=== PATIENT | female | born 1975 | race Caucasian/White ===

== ENCOUNTER 2019-07-13 05:32 | Emergency (ER) | payer OTHER ==
[~2019-07-13] VITALS: Ht 170.2 cm; Wt 77.1 kg
[2019-07-13 07:26] VITALS: BP 120/83
[2019-07-13] MEDS ORDERED: FAMOTIDINE 20 MG TAB PO ONE (07:45)
[2019-07-13] MEDS ORDERED: diphenhdrAMINE HCL 50 MG/1 ML VL IM ONE (07:45)
[2019-07-13] MEDS ORDERED: methylPREDNISolone SOD SUCC 125 MG/2 ML VL IM ONE (07:45)
== END 2019-07-13 08:20 | disposition home or self-care (01) ==
LOC: ER 05:32
DX: L23.9 Allergic contact dermatitis, unspecified cause (principal)
CPT/HCPCS: 96372; 99284; J1200; J2930

== ENCOUNTER 2022-09-16 18:13 | Emergency (ER) | payer OTHER ==
[~2022-09-16] VITALS: Ht 170.2 cm; Wt 80.0 kg
[2022-09-16 18:47] LABS: Basophils # (auto) 0 10 ^3/uL (0-0.2); Basophils % (auto) 0.4 % (0.0-2.0); Eosinophils # (auto) 0.1 10 ^3/uL (0-0.8); Hematocrit 37.3 % (36.0-46.0); Hemoglobin 12.4 g/dL (12.2-16.2); Lymphocytes # (auto) 3.2 10 ^3/uL (0.4-5.4); Lymphocytes % (auto) 41.4 % (10.0-50.0); Mean Corpuscular Hgb Conc. 33.2 g/dL (32.0-36.0); Mean Corpuscular Volume 90.4 fL (80.0-100.0); Monocytes # (auto) 0.5 10 ^3/uL (0-1.3); Monocytes % (auto) 6.6 % (0.0-12.0); Neutrophils % (auto) 50.6 % (37.0-80.0); Nucleated Red Blood Cells % 0.1 %; Red Blood Cells 4.13 10^6/uL (4.0-5.20); Red Cell Distribution Width 13.2 % (11.8-14.3); White Blood Cell 7.8 10^3/uL (4.4-10.8)
[2022-09-16 19:17] LABS: Albumin 3.6 g/dL (3.4-5.0); Calcium 8.8 mg/dL (8.5-10.1); Potassium 3.7 mmol/L (3.5-5.1)
[2022-09-16 19:21] LABS: BUN/Creatinine Ratio 19.2 (10.0-20.0); Bilirubin, Total 0.2 mg/dL (0.2-1.0); Total Protein 6.6 g/dL (6.4-8.2)
[2022-09-16] MEDS ORDERED: LORazepam 2MG/ML-1ML VIAL IV ONE (22:00)
[2022-09-16] MEDS ORDERED: SODIUM CHLORIDE 0.9% 1,000 ML IVB ONE (22:00)
[2022-09-16] MEDS ORDERED: ACETAMINOPHEN 325 MG TAB PO ONE (22:00)
[2022-09-16 22:18] LABS: Blood Alcohol < 3.0 mg/dL (<10); Magnesium 2.2 mg/dL (1.6-2.6)
[2022-09-16 22:28] LABS: Partial Thromboplastin Time 26.5 SEC (24.5-34.5)
[2022-09-16] MEDS ORDERED: IOHEXOL 350 MG/ML 100ML IJ ONE (22:37)
[2022-09-17 03:02] VITALS: BP 115/72; PULSE 69; RESP 18; TEMP 97.6; O2SAT 100
== END 2022-09-17 02:12 | disposition left against medical advice (07) ==
LOC: ER 18:13
DX: G45.9 Transient cerebral ischemic attack, unspecified (principal); I63.9 Cerebral infarction, unspecified; I24.9 Acute ischemic heart disease, unspecified; R07.89 Other chest pain; R20.0 Anesthesia of skin; M62.81 Muscle weakness (generalized); F17.210 Nicotine dependence, cigarettes, uncomplicated; Z88.0 Allergy status to penicillin
CPT/HCPCS: 36415; 70450; 70496; 71045; 80053; 80320; 83605; 83735; 83880; 84484; 85025; 85610; 85730; 93005; 96361; 96374; 99285; J2060; J7030; Q9967

== ENCOUNTER 2023-05-13 06:44 | Emergency (ER) | payer MEDICAID ==
[~2023-05-13] VITALS: Ht 170.2 cm; Wt 71.3 kg
[2023-05-13 07:26] VITALS: BP 118/75; PULSE 92; RESP 18; TEMP 97.3; O2SAT 99
[2023-05-13] MEDS: FAMOTIDINE (10MG/ML) 2ML VL IV ONE (08:01)
[2023-05-13] MEDS: methylPREDNISolone SOD SUCC 125 MG/2 ML VL IV ONE (08:02)
[2023-05-13] MEDS: diphenhdrAMINE HCL 50 MG/1 ML VL IV ONE (08:02)
[2023-05-13] MEDS: LORazepam 2MG/ML-1ML VIAL IM ONE (09:52)
[2023-05-13] MEDS ORDERED: PRED20TA2 PO (09:57)
[2023-05-13] MEDS ORDERED: CALA1SUS2 EX (09:57)
[2023-05-13] MEDS ORDERED: HYDR-3682 PO (09:57)
== END 2023-05-13 10:46 | disposition home or self-care (01) ==
LOC: ER 06:44
DX: T78.49XA Other allergy, initial encounter (principal); E11.9 Type 2 diabetes mellitus without complications; F17.210 Nicotine dependence, cigarettes, uncomplicated; Z98.890 Other specified postprocedural states; Z88.0 Allergy status to penicillin; Z79.899 Other long term (current) drug therapy; X58.XXXA Exposure to other specified factors, initial encounter
CPT/HCPCS: 96372; 96374; 96375; 99284; J1200; J2060; J2930; J3490

== ENCOUNTER 2024-12-02 11:37 | Emergency (ER) | payer MEDICAID, OTHER ==
[~2024-12-02] VITALS: Ht 170.2 cm; Wt 95.4 kg
[~2024-12-02 11:37] MED LIST: CALA1SUS2 EX; HYDR-3682 PO; PRED20TA2 PO
[2024-12-02 11:45] VITALS: BP 165/97; PULSE 105; RESP 16; TEMP 98.6; O2SAT 97
--- NOTE | 2024-12-02 11:47 | ED.PDOC ---
HPI Comments This is a 49 year old female presenting to the ED with chief complaint of generalized weakness. Nurse reports patient is coming from upstairs where her had just , causing the patient to start to experience numbness to all extremities with associated blurred vision and shock. Nurse relays that the patient has history of recent open heart surgery and her HR is now in the 130s. Patient denies any chest pain, SOB, N/V, dizziness, or headache. 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 History Family History Family History: Reviewed,noncontributory to illness Social History Smoker: Non-Smoker Alcohol: Denies ETOH Use Drugs: Denies Drug Use Lives In: Home Constitutional: reports: weakness; denies: chills, diaphoresis, fatigue, fever, malaise, sweats, others EENTM: reports: blurred vision; denies: double vision, ear bleeding, ear discharge, ear drainage, ear pain, ear ringing, eye pain, eye redness, hearing loss, mouth pain, mouth swelling, nasal discharge, nose bleeding, nose congestion, nose pain, photophobia, tearing, throat pain, throat swelling, voice changes, others Respiratory: denies: cough, hemoptysis, orthopnea, SOB at rest, shortness of breath, SOB with excertion, stridor, wheezing, others Cardiovascular: denies: chest pain, dizzy spells, diaphoresis, Dyspnea on exertion, edema, irregular heart beat, left arm pain, lightheadedness, palpitations, PND, syncope, others Gastrointestinal: denies: abdomen distended, abdominal pain, blood streaked bowels, constipated, diarrhea, dysphagia, difficulty swallowing, hematemesis, melena, nausea, poor appetite, poor fluid intake, rectal bleeding, rectal pain, vomiting, others Genitourinary: denies: abnormal vagina bleeding, burning, dyspareunia, dysuria, flank pain, frequency, hematuria, incontinence, pain, , vagina discharge, urgency, others Neurological: reports: tingling; denies: dizziness, fainting, headache, left sided numbness, left sided weakness, numbness, paresthesia, pre-existing deficit, right sided numbness, right sided weakness, seizure, speech problems, tremors, weakness, others Musculoskeletal: denies: back pain, gout, joint pain, joint swelling, muscle pain, muscle stiffness, neck pain, others Integumetry: denies: bruises, change in color, change in hair/nails, dryness, laceration, lesions, lumps, rash, wounds, others Allergic/Immunocompromised: denies: Difficulty Healing, Frequent Infections, Hives, Itching, others Hematologic/Lymphatic: denies: anemia, blood clots, easy bleeding, easy bruising, swollen glands, others Endocrine: denies: excessive hunger, excessive sweating, excessive thirst, excessive urination, flushing, intolerance to cold, intolerance to heat, unexplained weight gain, unexplained weight loss, others Psychiatric: denies: anxiety, bipolar disorder, depression, hopeless, panic disorder, schizophrenia, sleepless, suicidal, others All Other Systems: Reviewed and Negative Physical Exam General Appearance: No Apparent Distress, Normal HEENT: Normal ENT Inspection, Pharynx Normal, TMs Normal Neck: Full Range of Motion, Non-Tender, Normal, Normal Inspection Respiratory: Chest Non-Tender, Lungs Clear, No Accessory Muscle Use, No Respiratory Distress, Normal Breath Sounds Cardiovascular: No Edema, No JVD, No Murmur, No Gallop, Normal Peripheral Pulses, Regular Rate/Rhythm Breast Exam: Deferred Gastrointestinal: No Organomegaly, Non Tender, No Pulsatile Mass, Normal Bowel Sounds, Soft Genitalia: Deferred Pelvic: Deferred Rectal: Deferred Extremities: No calf tenderness, Normal capillary refill, Normal inspection, Normal range of motion, Non-tender, No pedal edema Musculoskeletal : Apperance: Normal Neurologic: Alert, administrative support assistant II-XII nml as Tested, No Motor Deficits, Normal Affect, Normal Mood, No Sensory Deficits Cerebellar Function: Normal Reflexes: Normal Skin: Dry, Normal Color, Warm Lymphatic: No Adenopathy Was a procedure done? Was a procedure done?: No Time of 1ST Reevaluation: 12:46 Reevaluation 1ST: Unchanged Patient Education/Counseling: Diagnosis, Treatment Family Education/Counseling: No Family Present Critical Care Note Critical Care Time?: No Stability Stability form required: No Heart Score Heart Score: Heart Score Response (Comments) Value History Moderate Suspicious 1 EKG Normal 0 Age 45-64 1 Risk Factors 1 or 2 risk factors 1 Total 3 I personally scribed for JAIME UMAÑA MD ([email or web address]) on 12/02/24 at 11:46. Electronically submitted by Nikhil Mullen ([email or web address]). JAIME UMAÑA MD Dec 02, 2024 11:46
--- NOTE | 2024-12-02 11:55 | ECG ---
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
== END 2024-12-02 12:05 | disposition left against medical advice (07) ==
LOC: EDUNIT# 11:37 → ER 11:37
DX: R53.1 Weakness (principal); R20.0 Anesthesia of skin; Z79.899 Other long term (current) drug therapy
CPT/HCPCS: 82947; 93005